=== PATIENT | male | born 1960 | race Caucasian/White ===

== ENCOUNTER 2021-01-05 18:39 | Inpatient (IN) | payer OTHER, MEDICARE ==
[~2021-01-05 18:39] MED LIST: Iopamidol-370 76% 500 ML 1 ML ONE
[2021-01-05] MEDS ORDERED: Ketorolac Tromethamine 30 MG/ML VIAL ONE ×2 (18:48)
[2021-01-05] MEDS ORDERED: CEFAZOLIN 1 GM VIAL ONE (18:48)
[2021-01-05] MEDS ORDERED: HYDROmorphone 0.5 MG/0.5 ML SYRINGE ONE (18:50)
[2021-01-05 19:15] LABS: #Eosinphils 0.1 thou/uL (0.0-0.7); #Lymphocytes 1.4 thou/uL (1.20-3.40); #Monocytes 1.9 thou/uL (0.11-0.59); #Neutrophils 16.4 thou/uL (1.40-6.50); %Basophils 0.2 % (0.0-1.0); %Eosinophils 0.7 % (0.0-10.0); %Lymphocytes 7.2 % (21.0-51.0); %Monocytes 9.8 % (0.0-10.0); %Neutrophils 82.2 % (42.0-75.0); Hemoglobin 15.3 g/dL (14.0-18.0); Mean Corpuscular HGB CONC 34.8 g/dL (32.0-36.0); Mean Corpuscular Hemoglobin 34.9 pg (27.0-31.0); Mean Platelet Volume 7.5 fL (7.4-10.4); Platelet Count 255 thou/uL (130-400); RBC Distribution Width 11.5 % (11.5-14.5); White Blood Cell (WBC) Count 19.9 thou/uL (4.8-10.8)
[2021-01-05 19:31] LABS: AST (SGOT) 75 U/L (5-34); Albumin 3.6 g/dL (3.5-5.0); Alkaline Phosphatase 59 U/L (40-110); Anion Gap 13 mmol/L (10-20); BUN (Urea Nitrogen) 13 mg/dL (8.4-25.7); Bilirubin, Total 0.9 mg/dL (0.2-1.2); Calc. Creatinine Clearance 0 mL/min (70-130); Calcium 7.9 mg/dL (7.8-10.44); Carbon Dioxide 20 mmol/L (22-29); Chloride 108 mmol/L (98-107); Globulin 2.5 g/dL (2.4-3.5); Glucose 135 mg/dL (70-105); Potassium 3.3 mmol/L (3.5-5.1); Protein, Total 6.1 g/dL (6.0-8.3); Sodium 138 mmol/L (136-145)
[2021-01-05 19:34] LABS: ALT (SGPT) 85 U/L (8-55)
[2021-01-05] MEDS ORDERED: Tranexamic Acid 1,000 MG/10 ML VIAL ONE (20:15)
[2021-01-05] MEDS ORDERED: Heparin 10,000 UNITS/ 10 ML VIAL ONE (20:23)
[2021-01-05] MEDS ORDERED: Calcium Chloride 1 GM/10 ML Abboject SYRINGE ONE (20:29)
[2021-01-05] MEDS ORDERED: Fentanyl 250 MCG/5 ML VIAL ONE (20:32)
[2021-01-05] MEDS ORDERED: Midazolam HCl 2 mg/2 ml Vial ONE (20:32)
[2021-01-05] MEDS ORDERED: Ondansetron PF 4 MG/2 ML Vial ONE (20:44)
[2021-01-05] MEDS ORDERED: Morphine 4 MG/ML VIAL ONE (20:44)
[2021-01-05 21:02] LABS: Hemoglobin 15.9 g/dL (14.0-18.0); Mean Corpuscular HGB CONC 34.5 g/dL (32.0-36.0); Mean Corpuscular Hemoglobin 34.3 pg (27.0-31.0); Mean Corpuscular Volume 99.6 fL (78.0-98.0); Mean Platelet Volume 7.7 fL (7.4-10.4); Platelet Count 260 thou/uL (130-400); RBC Distribution Width 12.3 % (11.5-14.5); Red Blood Cell (RBC) Count 4.62 mill/uL (4.70-6.10); White Blood Cell (WBC) Count 26.8 thou/uL (4.8-10.8)
[2021-01-05] MEDS ORDERED: Lidocaine 1% (PF) 30 ML VIAL ONE (21:02)
[2021-01-05] MEDS ORDERED: Propofol 1,000 MG/100 ML VIAL IV ONE (21:16)
[2021-01-05 21:22] LABS: Band 7 % (5-11); Lymphocytes 2 % (21-51); MDiff Complete? YES; Monocytes 6 % (0-10); Neutrophil 85 % (42-75); Platelet Morphology Comment Appears Adequate; RBC Morphology Normal
[2021-01-05] MEDS ORDERED: Fentanyl 100 MCG/2 ML VIAL ONE (21:40)
[2021-01-05] MEDS ORDERED: Dextrose 50% Abboject 50 ML SYRINGE SLOW IVP PRN (23:00)
[2021-01-05] MEDS ORDERED: Ondansetron ODT 4 MG TAB PO PRN (23:00)
[2021-01-05] MEDS ORDERED: Ondansetron PF 4 MG/2 ML Vial IVP PRN (23:00)
[2021-01-05] MEDS ORDERED: Promethazine HCl 25 MG/ML VIAL IM PRN ×2 (23:00)
[2021-01-05] MEDS ORDERED: Dextrose 5% in Water 1,000 ML IV PRN (23:00)
[2021-01-05] MEDS ORDERED: hydrALAZINE 20 MG/ML VIAL SLOW IVP PRN (23:00)
[2021-01-05] MEDS: Sodium Chloride 0.9% 1,000 ML IV SCH (23:08)
[2021-01-05] MEDS ORDERED: Famotidine 20 MG TAB PO SCH (23:15)
[2021-01-05 23:36] LABS: Hemoglobin 14.3 g/dL (14.0-18.0)
[2021-01-05] MEDS: Morphine 2 MG/ML VIAL SLOW IVP PRN (23:37)
[2021-01-05] MEDS: Acetaminophen 500 MG TAB PO SCH (23:38)
[2021-01-05] MEDS: traMADol HCl 50 MG TAB PO SCH (23:39)
[2021-01-06] MEDS: traMADol HCl 50 MG TAB PO PRN ×2 (00:49→08:55)
[2021-01-06 01:04] VITALS: BMI 28.3
[2021-01-06] MEDS: Morphine 2 MG/ML VIAL SLOW IVP PRN ×4 (01:29→14:03)
[2021-01-06 05:14] LABS: #Basophils 0.2 thou/uL (0.0-0.2); #Eosinphils 0.1 thou/uL (0.0-0.7); #Lymphocytes 0.4 thou/uL (1.20-3.40); #Monocytes 1.4 thou/uL (0.11-0.59); #Neutrophils 13.5 thou/uL (1.40-6.50); %Basophils 1.2 % (0.0-1.0); %Eosinophils 0.4 % (0.0-10.0); %Lymphocytes 2.9 % (21.0-51.0); %Monocytes 8.8 % (0.0-10.0); %Neutrophils 86.8 % (42.0-75.0); Hemoglobin 13.9 g/dL (14.0-18.0); Mean Corpuscular HGB CONC 34.5 g/dL (32.0-36.0); Mean Corpuscular Hemoglobin 34.5 pg (27.0-31.0); Platelet Count 214 thou/uL (130-400); RBC Distribution Width 12.5 % (11.5-14.5); Red Blood Cell (RBC) Count 4.03 mill/uL (4.70-6.10); White Blood Cell (WBC) Count 15.6 thou/uL (4.8-10.8)
[2021-01-06] MEDS: traMADol HCl 50 MG TAB PO SCH ×3 (05:55→17:01)
[2021-01-06 05:56] LABS: Anion Gap 13 mmol/L (10-20); BUN (Urea Nitrogen) 14 mg/dL (8.4-25.7); Calc. Creatinine Clearance 107 mL/min (70-130); Calcium 8.1 mg/dL (7.8-10.44); Carbon Dioxide 21 mmol/L (22-29); Chloride 108 mmol/L (98-107); Glucose 160 mg/dL (70-105); Magnesium 1.5 mg/dL (1.6-2.6); Phosphorus 3.6 mg/dL (2.3-4.7); Potassium 4.5 mmol/L (3.5-5.1); Sodium 137 mmol/L (136-145)
[2021-01-06] MEDS: Acetaminophen 500 MG TAB PO SCH ×3 (05:57→17:01)
[2021-01-06] MEDS: Ibuprofen 800 MG TAB PO SCH ×3 (05:57→21:36)
[2021-01-06] MEDS: Sodium Chloride 0.9% 1,000 ML IV SCH (06:01)
[2021-01-06] MEDS ORDERED: Magnesium Sulfate 4 GM in Sodium Chloride 0.9% 250 ML 250 ML IVPB SCH (08:15)
[2021-01-06] MEDS: Amlodipine 10 MG TAB PO SCH (08:44)
[2021-01-06] MEDS: Senokot S 8.6-50 MG TAB PO SCH ×2 (08:50→21:34)
[2021-01-06] MEDS: Polyethylene Glycol 3350 17 GM Packet PO SCH (08:50)
[2021-01-06] MEDS: Gabapentin 300 MG CAP PO SCH ×3 (08:50→21:34)
[2021-01-06] MEDS: Famotidine 20 MG TAB PO SCH ×2 (08:51→21:34)
[2021-01-06] MEDS: Cyclobenzaprine 10 MG TAB PO PRN (08:51)
[2021-01-06] MEDS ORDERED: Ketorolac Tromethamine 30 MG/ML VIAL IVP SCH (10:15)
[2021-01-06 11:14] LABS: SARS-CoV-2 PCR by NAA Not Detected (NotDetected)
[2021-01-06 12:56] LABS: Hemoglobin 12.7 g/dL (14.0-18.0)
[2021-01-06] MEDS: Ferrous Sulfate 325 MG TAB PO SCH (17:00)
[2021-01-06 19:48] LABS: Hemoglobin 11.8 g/dL (14.0-18.0)
[2021-01-06] MEDS: Ascorbic Acid 500 mg Chewable Tablet PO SCH (21:37)
[2021-01-06 23:10] LABS: Hemoglobin 11.6 g/dL (14.0-18.0)
[2021-01-07] MEDS: Acetaminophen 500 MG TAB PO SCH ×2 (00:24→05:14)
[2021-01-07] MEDS: traMADol HCl 50 MG TAB PO SCH ×4 (00:24→19:37)
[2021-01-07] MEDS: Ibuprofen 800 MG TAB PO SCH ×3 (05:14→21:08)
[2021-01-07] MEDS: Morphine 2 MG/ML VIAL SLOW IVP PRN (05:30)
[2021-01-07 05:47] LABS: Hemoglobin 10.7 g/dL (14.0-18.0)
[2021-01-07] MEDS: Famotidine 20 MG TAB PO SCH ×2 (09:07→21:09)
[2021-01-07] MEDS: Acetaminophen/Codeine 30-300mg Tablet PO PRN ×3 (09:07→21:09)
[2021-01-07] MEDS: Polyethylene Glycol 3350 17 GM Packet PO SCH (09:08)
[2021-01-07] MEDS: Ascorbic Acid 500 mg Chewable Tablet PO SCH ×2 (09:08→21:09)
[2021-01-07] MEDS: Senokot S 8.6-50 MG TAB PO SCH ×2 (09:08→21:08)
[2021-01-07] MEDS: Ferrous Sulfate 325 MG TAB PO SCH ×2 (09:08→17:56)
[2021-01-07] MEDS: Gabapentin 300 MG CAP PO SCH ×3 (09:08→21:07)
[2021-01-07] MEDS: Amlodipine 10 MG TAB PO SCH (09:09)
[2021-01-07 11:32] LABS: Hemoglobin 10.7 g/dL (14.0-18.0)
[2021-01-07] MEDS ORDERED: Acetaminophen 325 MG TAB PO SCH (12:00)
[2021-01-07] MEDS: Cyclobenzaprine 10 MG TAB PO PRN (13:43)
[2021-01-07] MEDS ORDERED: Acetaminophen/Codeine 30-300mg Tablet PO PRN ×2 (16:51→16:52)
[2021-01-07] MEDS ORDERED: Ketorolac Tromethamine 30 MG/ML VIAL IVP SCH (17:00)
[2021-01-08] MEDS: Cyclobenzaprine 10 MG TAB PO PRN ×2 (00:13→09:00)
[2021-01-08] MEDS: traMADol HCl 50 MG TAB PO SCH ×5 (00:13→23:41)
[2021-01-08] MEDS: Acetaminophen/Codeine 30-300mg Tablet PO PRN ×3 (00:14→10:45)
[2021-01-08 05:18] LABS: #Eosinphils 0.3 thou/uL (0.0-0.7); #Lymphocytes 1.3 thou/uL (1.20-3.40); #Monocytes 1.8 thou/uL (0.11-0.59); #Neutrophils 9.5 thou/uL (1.40-6.50); %Basophils 0.1 % (0.0-1.0); %Eosinophils 2.6 % (0.0-10.0); %Lymphocytes 10.3 % (21.0-51.0); %Monocytes 13.8 % (0.0-10.0); %Neutrophils 73.2 % (42.0-75.0); Hemoglobin 9.8 g/dL (14.0-18.0); Mean Corpuscular HGB CONC 32.9 g/dL (32.0-36.0); Mean Platelet Volume 7.6 fL (7.4-10.4); Platelet Count 193 thou/uL (130-400); RBC Distribution Width 12.2 % (11.5-14.5); Red Blood Cell (RBC) Count 2.97 mill/uL (4.70-6.10); White Blood Cell (WBC) Count 12.9 thou/uL (4.8-10.8)
[2021-01-08 05:45] LABS: Anion Gap 12 mmol/L (10-20); BUN (Urea Nitrogen) 10 mg/dL (8.4-25.7); Calc. Creatinine Clearance 123 mL/min (70-130); Calcium 8.2 mg/dL (7.8-10.44); Carbon Dioxide 24 mmol/L (22-29); Chloride 106 mmol/L (98-107); Glucose 112 mg/dL (70-105); Magnesium 2.1 mg/dL (1.6-2.6); Phosphorus 2.3 mg/dL (2.3-4.7); Potassium 4.1 mmol/L (3.5-5.1); Sodium 138 mmol/L (136-145)
[2021-01-08] MEDS: Ibuprofen 800 MG TAB PO SCH ×3 (06:26→22:28)
[2021-01-08] MEDS: Senokot S 8.6-50 MG TAB PO SCH ×2 (09:12→20:10)
[2021-01-08] MEDS: Gabapentin 300 MG CAP PO SCH ×3 (09:13→20:10)
[2021-01-08] MEDS: Famotidine 20 MG TAB PO SCH ×2 (09:14→20:11)
[2021-01-08] MEDS: Ascorbic Acid 500 mg Chewable Tablet PO SCH ×2 (09:15→20:11)
[2021-01-08] MEDS: Ferrous Sulfate 325 MG TAB PO SCH ×2 (09:15→17:08)
[2021-01-08] MEDS: Amlodipine 10 MG TAB PO SCH (09:15)
[2021-01-08] MEDS: Polyethylene Glycol 3350 17 GM Packet PO SCH (09:16)
[2021-01-08] MEDS ORDERED: HYDROcodone/Acetaminophen 5/325 mg Tablet PO PRN (11:11)
[2021-01-08] MEDS: Acetaminophen 500 MG TAB PO SCH ×3 (11:29→23:41)
[2021-01-09] MEDS: traMADol HCl 50 MG TAB PO SCH ×3 (05:32→17:41)
[2021-01-09] MEDS: Acetaminophen 500 MG TAB PO SCH ×3 (05:32→17:40)
[2021-01-09] MEDS: Ibuprofen 800 MG TAB PO SCH ×3 (05:32→20:23)
[2021-01-09] MEDS: Senokot S 8.6-50 MG TAB PO SCH ×2 (09:06→20:24)
[2021-01-09] MEDS: Amlodipine 10 MG TAB PO SCH (09:06)
[2021-01-09] MEDS: Gabapentin 300 MG CAP PO SCH (09:07)
[2021-01-09] MEDS: Ascorbic Acid 500 mg Chewable Tablet PO SCH ×2 (09:08→20:23)
[2021-01-09] MEDS: Ferrous Sulfate 325 MG TAB PO SCH ×3 (09:08→20:24)
[2021-01-09] MEDS: Polyethylene Glycol 3350 17 GM Packet PO SCH (10:08)
[2021-01-09] MEDS ORDERED: Pregabalin 75 MG CAP PO SCH (10:30)
[2021-01-09] MEDS: Pregabalin 75 MG CAP PO SCH (20:24)
[2021-01-10] MEDS: traMADol HCl 50 MG TAB PO SCH ×3 (00:29→12:27)
[2021-01-10] MEDS: Acetaminophen 500 MG TAB PO SCH ×3 (00:29→12:27)
[2021-01-10] MEDS: Ibuprofen 800 MG TAB PO SCH (06:09)
[2021-01-10 06:40] LABS: Band 6 % (5-11); Hemoglobin 10.5 g/dL (14.0-18.0); Hypochromia SLIGHT = 6-15 cells (100X) (0-5/hpf); Lymphocytes 6 % (21-51); MDiff Complete? YES; Mean Corpuscular HGB CONC 34.1 g/dL (32.0-36.0); Mean Corpuscular Hemoglobin 34.5 pg (27.0-31.0); Mean Platelet Volume 7.3 fL (7.4-10.4); Monocytes 19 % (0-10); Neutrophil 69 % (42-75); Platelet Count 331 thou/uL (130-400); Platelet Morphology Comment Appears Adequate; RBC Distribution Width 12.4 % (11.5-14.5); Red Blood Cell (RBC) Count 3.04 mill/uL (4.70-6.10); White Blood Cell (WBC) Count 14.8 thou/uL (4.8-10.8)
[2021-01-10 08:20] VITALS: TEMP 97.9
[2021-01-10] MEDS: Senokot S 8.6-50 MG TAB PO SCH (08:39)
[2021-01-10] MEDS: Polyethylene Glycol 3350 17 GM Packet PO SCH (08:39)
[2021-01-10] MEDS: Amlodipine 10 MG TAB PO SCH (08:40)
[2021-01-10] MEDS: Pregabalin 75 MG CAP PO SCH (08:40)
[2021-01-10] MEDS: Ferrous Sulfate 325 MG TAB PO SCH (08:40)
[2021-01-10] MEDS: Ascorbic Acid 500 mg Chewable Tablet PO SCH (08:41)
[2021-01-10 11:42] VITALS: BP 112/70
== END 2021-01-10 13:09 | disposition home or self-care (01) | DRG 957 ==
LOC: ERS 18:39 → SDC/OP 21:28 → IMCU/EMU 22:58 → SURG A 01-06 15:54
PROVIDERS: ADMIT Specialist; ATTEND Specialist
PROC: 04L43DZ Occlusion of Splenic Artery with Intraluminal Device, Percutaneous Approach (ICD-10-PCS; principal; 2021-01-05)
DX: S36.039A Unspecified laceration of spleen, initial encounter (principal); S27.1XXA Traumatic hemothorax, initial encounter; Z20.822 Contact with and (suspected) exposure to COVID-19; J96.21 Acute and chronic respiratory failure with hypoxia; S22.42XA Multiple fractures of ribs, left side, initial encounter for closed fracture; S27.321A Contusion of lung, unilateral, initial encounter; F17.210 Nicotine dependence, cigarettes, uncomplicated; I10 Essential (primary) hypertension; S42.122A Displaced fracture of acromial process, left shoulder, initial encounter for closed fracture; F43.10 Post-traumatic stress disorder, unspecified; V80.010A Animal-rider injured by fall from or being thrown from horse in noncollision accident, initial encounter; Z98.52 Vasectomy status; Z79.899 Other long term (current) drug therapy
CPT/HCPCS: 36245; 36415; 36430; 61626; 70450; 71045; 71260; 72125; 74177; 75726; 76942; 80048; 80053; 83735; 84100; 85014; 85018; 85025; 86850; 86900; 86901; 94640; 96365; 96367; 96368; 96375; G0390; J0690; J1170; J1644; J1885; J2001; J2250; J2270; J2405; J2550; J2704; J3010; J3475; J7050; J7620; P9016; Q9967; U0003; U0005

== ENCOUNTER 2021-01-11 15:03 | Emergency (ER) | payer MEDICARE ==
[2021-01-11] MEDS ORDERED: Morphine 4 MG/ML VIAL ONE (15:40)
[2021-01-11] MEDS ORDERED: Ketorolac Tromethamine 30 MG/ML VIAL ONE (15:49)
[2021-01-11 16:20] LABS: Mean Corpuscular HGB CONC 34.7 g/dL (32.0-36.0); Mean Corpuscular Hemoglobin 34.8 pg (27.0-31.0); Platelet Count 438 thou/uL (130-400); RBC Distribution Width 12.3 % (11.5-14.5); Red Blood Cell (RBC) Count 3.16 mill/uL (4.70-6.10); White Blood Cell (WBC) Count 18.9 thou/uL (4.8-10.8)
[2021-01-11 16:37] LABS: ALT (SGPT) 65 U/L (8-55); AST (SGOT) 138 U/L (5-34); Albumin 3.1 g/dL (3.5-5.0); Alkaline Phosphatase 227 U/L (40-110); Anion Gap 19 mmol/L (10-20); BUN (Urea Nitrogen) 11 mg/dL (8.4-25.7); Bilirubin, Total 4.6 mg/dL (0.2-1.2); Calc. Creatinine Clearance 0 mL/min (70-130); Calcium 8.9 mg/dL (7.8-10.44); Carbon Dioxide 21 mmol/L (22-29); Chloride 100 mmol/L (98-107); Globulin 3.5 g/dL (2.4-3.5); Glucose 136 mg/dL (70-105); Potassium 3.4 mmol/L (3.5-5.1); Protein, Total 6.6 g/dL (6.0-8.3); Sodium 137 mmol/L (136-145)
[2021-01-11 16:53] LABS: Anisocytosis SLIGHT = 6-15 cells (100X) (0-5/hpf); Band 11 % (5-11); Lymphocytes 9 % (21-51); MDiff Complete? YES; Monocytes 25 % (0-10); Myelocyte 1 % (0-0); Neutrophil 54 % (42-75); Nucleated RBC 2 % (0); Platelet Morphology Comment Appears Increased
== END 2021-01-11 18:57 | disposition home or self-care (01) ==
LOC: ERS 15:03
DX: R14.0 Abdominal distension (gaseous) (principal); R10.84 Generalized abdominal pain; I10 Essential (primary) hypertension; F17.210 Nicotine dependence, cigarettes, uncomplicated
CPT/HCPCS: 36415; 71045; 80053; 83605; 85025; 86850; 86900; 86901; 93005; 96374; 96375; J1885; J2270

== ENCOUNTER 2021-01-19 11:59 | Outpatient (CLI) | payer MEDICARE | END 2021-01-19 12:00 | disposition home or self-care (01) | LOC: BICRAD 11:59 | PROVIDERS: ATTEND Surgery | DX: S22.42XD Multiple fractures of ribs, left side, subsequent encounter for fracture with routine healing (principal); R91.8 Other nonspecific abnormal finding of lung field | CPT/HCPCS: 71046 ==